=== PATIENT | female | born 1985 | race Caucasian/White ===

== ENCOUNTER → 2017-01-27 | Outpatient (CLI) | payer MEDICAID ==
[~2017-01-27] MED LIST: MOTRIN 800800 MG/TAB PO; PERCOCET 325 MG1 TA2 PO; PRENATAL1 TA7 PO
== END ==
LOC: SUN.DIA 08:36
DX: O24.419 Gestational diabetes mellitus in pregnancy, unspecified control (principal); Z3A.31 31 weeks gestation of pregnancy; Z71.3 Dietary counseling and surveillance; Z72.0 Tobacco use
CPT/HCPCS: G0108

== ENCOUNTER 2017-02-17 14:04 | Inpatient (IN) | payer MEDICAID ==
[~2017-02-17] VITALS: Ht 152.4 cm; Wt 67.3 kg
[2017-03-20] VITALS (32 sets, daily range): BP systolic 93–145; BP diastolic 53–91; PULSE 64–111; TEMP 97.4–98.6
[2017-03-20] MEDS ORDERED: PRENATAL1 TA7 PO (07:28)
[2017-03-20 08:03] LABS: BASO % 0.2 % (0.0-2.0); EOS # 0.1 (0.0-0.7); EOS % 0.9 % (0-4.0); GRAN % 61.5 % (42.2-75.2); HEMATOCRIT 37.1 % (37.0-47.0); HEMOGLOBIN 12.6 g/dl (12.5-16.0); LYMPH # 2.2 (1.2-3.4); LYMPH % 27.5 % (20.0-51.0); MEAN CELL VOLUME 90 fl (80.0-100.0); MEAN CORPUSCULAR HEMOGLOBIN 30 pg (27.0-31.0); MEAN CORPUSCULAR HGB CONC 34 g/dl (33.0-37.0); MEAN PLATELET VOLUME 14.1 fl (7.4-10.4); MONO # 0.8 (0.1-0.6); MONO % 9.4 % (1.7-9.3); PLATELET COUNT 113 K/mm3 (130-400); RED BLOOD COUNT 4.14 M/mm3 (4.10-5.30); REDCELL DISTRIBUTION WIDTH-CV 13.8 % (11.5-14.5); WHITE BLOOD COUNT 8.2 K/mm3 (4.8-10.8)
[2017-03-20] MEDS ORDERED: MOTRIN 800800 MG/TAB PO (09:30)
[2017-03-20] MEDS ORDERED: PERCOCET 325 MG1 TA2 PO (09:30)
[2017-03-21 04:35] VITALS: BP 90/74; PULSE 78; TEMP 97.3
[2017-03-21 07:00] VITALS: BP 124/72; PULSE 97; TEMP 98.1
[2017-03-21 16:11] VITALS: BP 100/72; PULSE 76; TEMP 98.1
[2017-03-21 20:45] VITALS: BP 114/65; PULSE 80; TEMP 98
[2017-03-22 08:00] VITALS: BP 121/78; PULSE 65; TEMP 98
== END 2017-03-22 16:58 | disposition home or self-care (01) | DRG 775 ==
LOC: OB 03-20 07:02 → LDR 03-20 07:10 → OB 03-20 17:07 → EDSTATUS 03-31 07:01 → LDRO 03-31 14:03
PROVIDERS: Obstetrics & Gynecology
PROC: 10D07Z6 Extraction of Products of Conception, Vacuum, Via Natural or Artificial Opening (ICD-10-PCS; principal; 2017-03-20)
PROC: 3E033VJ Introduction of Other Hormone into Peripheral Vein, Percutaneous Approach (ICD-10-PCS; 2017-03-20)
PROC: 0W8NXZZ Division of Female Perineum, External Approach (ICD-10-PCS; 2017-03-20)
DX: O36.5930 Maternal care for other known or suspected poor fetal growth, third trimester, not applicable or unspecified (principal); O31.21X1 Continuing pregnancy after intrauterine death of one fetus or more, first trimester, fetus 1; O24.420 Gestational diabetes mellitus in childbirth, diet controlled; O76 Abnormality in fetal heart rate and rhythm complicating labor and delivery; O99.334 Smoking (tobacco) complicating childbirth; F17.210 Nicotine dependence, cigarettes, uncomplicated; Z3A.38 38 weeks gestation of pregnancy; Z37.0 Single live birth
CPT/HCPCS: J2590; J7120

== ENCOUNTER 2018-07-27 06:36 | Inpatient (IN) | payer MEDICAID ==
[~2018-07-27] VITALS: Ht 165.1 cm; Wt 60.9 kg
[2018-07-27] VITALS (18 sets, daily range): BP systolic 99–144; BP diastolic 53–82; PULSE 55–80; TEMP 97.5–98.7
--- NOTE | 2018-07-27 06:40 | NUR ---
Patient to LR 3 via wheelchair with significant other, changed into gown. Patient very uncomfortable with contractions. 0648: SVE-/0, Patient states shes been having some bloody show, but nothing to think her water broke, and started aida last night. 0649: Dr. Sharif called and notified. 0655: IV started in left hand, blood drawb and sent lab, LR infusing. 0658: Ghazala Tejeda BUSINESS PROCESS ARCHITECT in for placement of epidural and patient sitting up. 0704: Test dose given and patient tolerates well. See anesthesia record. Maternal HR tracing due to maternal position. 0710: Patient wedged left and continue to monitor.
[2018-07-27] MEDS ORDERED: BONJESTA ER 201 EACH PO (06:55)
[2018-07-27] MEDS ORDERED: LEXAPRO 10MG10 MG PO (06:55)
--- NOTE | 2018-07-27 07:05 | NUR ---
Dr. Sharif at bedside to evaluate patient and FHR strip. 0710: SVE per physician . No new orders at this time. FHR baseline 100bpm with moderate variability.
[2018-07-27] MEDS ORDERED: PERCOCET 325 MG1 TA2 PO (07:35)
[2018-07-27] MEDS ORDERED: MOTRIN 800800 MG/TAB PO (07:35)
[2018-07-27 07:49] LABS: BASO % 0.3 % (0.0-2.0); EOS # 0.1 (0.0-0.7); EOS % 0.7 % (0-4.0); GRAN # 6.3 (1.4-6.5); GRAN % 52.6 % (42.2-75.2); HEMATOCRIT 41.6 % (37.0-47.0); LYMPH # 4.4 (1.2-3.4); LYMPH % 36.6 % (20.0-51.0); MEAN CELL VOLUME 87 fl (80.0-100.0); MEAN CORPUSCULAR HEMOGLOBIN 29 pg (27.0-31.0); MEAN CORPUSCULAR HGB CONC 34 g/dl (33.0-37.0); MONO # 1.1 (0.1-0.6); MONO % 9.2 % (1.7-9.3); RED BLOOD COUNT 4.77 M/mm3 (4.10-5.30); REDCELL DISTRIBUTION WIDTH-CV 13.2 % (11.5-14.5)
[2018-07-27 08:01] LABS: PLATELET COUNT 148 K/mm3 (130-400)
--- NOTE | 2018-07-27 08:05 | NUR ---
Dr Sharif at bedside to assess patient and review FHR strip. 0813: SVE-9-/0 and AROM with thick meconium fluid at this time. Pericare done and will continue to monitor.
--- NOTE | 2018-07-27 08:40 | NUR ---
Patient left lateral and peanut ball in place. FHR baseline 100-110BPM 0850: at bedside and SVE complete per physician. 0855: Patient prepped for delivery, feet in stirrups, and bed taken apart. Patient begins to push with Dr. Sharif at this time. 0900: Patient continues to push with contractions. FHR decreasing to 70-90bpm in between contractions/variable decerleration noted. 0905: Vacuum on and suction applied and pop off x1. 0906: Vacuum assisted delivery of head followed by body. bulb syringed , José assumes care of , cord clamped by pysician and cut by FOB. 0910: Spontanous vaginal delivery of placenta and pitocin started per protocol. Fundal massage done/fudus firm/ bleeding WNL. Dr. Sharif begins to repair first degree laceration. 0914: Straght catherization done and approx. 100 ml out. Pericare done, patient repositioned, and ice pack to perieum. Will continue to monitor.
--- NOTE | 2018-07-27 12:00 | NUR ---
Patient dangles on the edge of bed, epidural catheter removed and catheter intacted. Patient ambulates to bathroom, voids, pericare done, new gown/underwear/icepack on. Patient ambulates to nursery to see baby, and then to new room and oriented to room. Plan of care discussed.
[2018-07-28] VITALS: BP 100/57; PULSE 60; TEMP 98.9
[2018-07-28 08:37] VITALS: BP 127/59; PULSE 64
--- NOTE | 2018-07-28 10:19 | NUR ---
Initial visit attempt; Patient Indisposed, Machinist Helper left card of congratulations for the of her daughter and informations regarding the availability of [facility] at [address].
== END 2018-07-28 14:45 | disposition home or self-care (01) | DRG 807 ==
LOC: LDRO 06:36 → OB 06:58 → LDR 06:58 → OB 06:59
PROVIDERS: ADMIT Obstetrics & Gynecology
PROC: 10D07Z6 Extraction of Products of Conception, Vacuum, Via Natural or Artificial Opening (ICD-10-PCS; principal; 2018-07-27)
PROC: 0HQ9XZZ Repair Perineum Skin, External Approach (ICD-10-PCS; 2018-07-27)
DX: O76 Abnormality in fetal heart rate and rhythm complicating labor and delivery (principal); Z37.0 Single live birth; O77.0 Labor and delivery complicated by meconium in amniotic fluid; Z3A.38 38 weeks gestation of pregnancy; O70.0 First degree perineal laceration during delivery; O99.344 Other mental disorders complicating childbirth; F41.8 Other specified anxiety disorders; O99.334 Smoking (tobacco) complicating childbirth
CPT/HCPCS: J2590; J2795; J7120

== ENCOUNTER → 2020-12-21 | Outpatient (CLI) | payer MEDICAID ==
[~2020-12-21] MED LIST changes: +BONJESTA ER 201 EACH PO; +LEXAPRO 10MG10 MG PO
== END ==
LOC: MC.RAD 09:48
DX: Z12.31 Encounter for screening mammogram for malignant neoplasm of breast (principal)

== ENCOUNTER → 2023-04-03 | Outpatient (CLI) | payer MEDICAID | LOC: MC.RAD 08:55 | DX: Z12.31 Encounter for screening mammogram for malignant neoplasm of breast (principal); Z80.3 Family history of malignant neoplasm of breast ==